=== PATIENT | male | born 1965 | race Caucasian/White ===

== ENCOUNTER 2017-03-07 17:29 | Emergency (ER) | payer MEDICAID ==
[~2017-03-07] VITALS: Ht 190.5 cm; Wt 100.5 kg
[2017-03-07 17:31] VITALS: Ht 190.5 cm; Wt 100.5 kg
--- OUTSIDE RECORDS SUMMARY | 2017-03-07 17:34 | XMS REPORT | Continuity of Care Document ---
Author Author [facility] Address [address] [place] [address] Care Team Providers Care Chief Of Surgery Name Role Phone DOCTOR, OUT OF TOWN Unavailable Unavailable Insurance Providers Payer Name Policy Number Subscriber Name Relationship Self-Pay Self-Pay CRAIG GILLESPIE Self Advance Directives Directive Response Recorded Date/Time Advance Directive Information: AD BROCHURE GIVEN TO PT 08/28/16 5:54pm Chief Complaint and Reason for Visit Reason for Visit KIDNEYSTONE Problems Active Medical Problems Problem Onset Date Recorded Date Status Renal calculus, right Unknown 08/28/16 Active Hydronephrosis, right Unknown 08/28/16 Active Medications Current Home Medications Medication Dose Units Route Directions Days/Qty Instructions Start Date MEDICATION RECONCILIATION (Medication Reconciliation) 1 EACH EA 1 EACH BY MOUTH ONE TIME ONLY Acetaminophen 500 MG (Tylenol Extra Strength 500 MG) 500 MG TAB 500 MG BY MOUTH EVERY 4 HOURS NEEDED PRN PAIN Hydrocodone 5MG/Acet 325MG ([place] 5-325 Tablet) 1 EACH TABLET 1 TAB BY MOUTH EVERY 4 HOURS NEEDED PRN PAIN 20 1 tab PO q 4-6 hours PRN pain Multiple Vitamins W/Minerals (Centrum) 1 EA TAB 1 TAB BY MOUTH DAILY Ondansetron (Zofran Odt) 4 MG TAB.RAPDIS 4 MG BY MOUTH EVERY 6 HOURS NEEDED PRN NAUSEA AND VOMITING 12 08/28/16 Tamsulosin HCl (Flomax) 0.4 MG CAP.ER.24H 1 TAB PO DAILY 7 1 tab PO daily 08/28/16 Social History No social history. Hospital Discharge Instructions No hospital discharge instructions. Plan of Care Discharge Date 08/28/16 Disposition HOME/SELF CARE Instructions/Education Provided DI for Kidney Stones Prescriptions See Medications Section Referrals OUT OF TOWN DOCTOR - Additional Instructions/Education Continue to drink plenty of fluids. Take pain medicine as needed. Take nausea medication as needed. Take flomax daily. Follow up with the urologist appointment that you have scheduled for Wednesday. Return to the ER if you have worsening pain or other symptoms that you cannot control at home. No driving until cleared by urology. Care Plan and Goals Problem: Flank Pain Goal: Relief of flank pain. Plan: Refer to patient instructions provided. Functional Status No functional status results. Allergies, Adverse Reactions, Alerts Allergen Type Severity Reaction Status Last Updated PENICILLINS Allergy Unknown Active 08/28/16 CODEINE Allergy Unknown Active 08/28/16 AMPICILLIN Allergy Unknown Active 08/28/16 Immunizations Name Date Given Type *Flu Shot: None Historical *Tetanus Shot: Unknown Historical Vital Signs Vital Reading Collection Date/Time Result Blood Pressure 08/28/16 8:15pm 132/88 Patient Temperature 08/28/16 5:08pm 97.0 Temperature Source 08/28/16 5:08pm Temporal Respiratory Rate 08/28/16 8:15pm 20 Pulse Rate 08/28/16 8:15pm 78 Bedside Pulse Oximetry 08/28/16 8:15pm 98 Height 08/28/16 5:08pm 6 ft 3 in Weight 08/28/16 5:08pm 212 lb Body Mass Index 08/28/16 5:08pm 26.5 Results [place] [id number] ED PHYSICIAN DOCUMENTATION Patient Name: CRAIG GILLESPIE : 65 Unit #: [id number] Patient's Service Date: 08/28/16 ED Physician: Oriana Johnson MD Primary Physician: OUT OF TOWN DOCTOR History of Present Illness General Chief Complaint Flank Pain Stated Complaint KIDNEYSTONE Time Seen by Provider 1730 Source patient Exam Limitations no limitations History of Present Illness Initial Comments Pt began having right flank pain this AM. He has not been able to urinate. He has hx Location abdomen (right flank) Context present at rest Quality sharp, cramping Severity moderate Duration since waking today Timing continuous Allergies Coded Allergies: AMPICILLIN (08/28/16) CODEINE (08/28/16) PENICILLINS (08/28/16) Home Medications Reported Medications MEDICATION RECONCILIATION (Medication Reconciliation) 1 EACH BY MOUTH ONE Acetaminophen 500 MG (Tylenol Extra Strength 500 MG) 500 MG BY MOUTH Q4H PRN PRN PAIN Multiple Vitamins W/Minerals (Centrum) 1 TAB BY MOUTH DAILY Review of Systems Review of Systems Was ROS Completed? Yes Constitutional Denies fever, Denies chills ENT Denies ear pain, Denies nose congestion, Denies throat pain Respiratory Denies cough, Denies short of breath, Denies wheezing Cardiovascular Denies chest pain, Denies syncope Gastrointestinal Reports abdominal pain (right flank), Reports nausea, Denies diarrhea, Denies vomiting Genitourinary Reports decreased urination Skin Denies rash Past Medical History Past Medical History Medical History renal stones Surgical History stone removal procedure Social History Smoker Never smoker Other Tobacco Use Chewing Tobacco Physical Exam Physical Exam Exam Limitations no limitations Nursing Assessment Reviewed Yes Initial Vital Signs Vital Signs Result Date Time Pulse Ox 98 08/28 1708 B/P 160/87 08/28 170 Temp 97.0 08/28 170 Pulse 94 08/28 1708 Resp 16 08/28 1708 Constitutional well developed, well nourished, no apparent distress Eyes bilateral eyes PERRL, bilateral eyes EOMI Ear, Nose, Throat hearing grossly normal Neck normal inspection, full range of motion Respiratory no respiratory distress, normal breath sounds, no accessory muscle use Cardiovascular regular rate/rhythm Gastrointestinal soft, non tender, flank tenderness (R CVA TTP) Musculoskeletal gait WNL Skin normal color, warm/dry Neurological no motor deficit, no sensory deficit Psychiatric alert, oriented, normal mood/affect Results Results Labs Laboratory Tests 08/28 08/28 1725 1900 Chemistry Sodium (135 - 150 mmol/L) 142 Potassium (3.4 - 5.2 mmol/L) 3.4 Chloride (100 - 112 mmol/L) 103 Carbon Dioxide (21 - 33 meq/L) 30 Anion Gap (8 - 16 mmol/L) 9 BUN (5 - 21 mg/dl) 8 Creatinine (0.60 - 1.30 mg/dl) 1.32 H GFR Calculation (> 60 mL/Min) > 60 Glucose (70 - 99 mg/dl) 94 Calcium (8.6 - 10.5 mg/dl) 9.2 Total Bilirubin (0.0 - 1.2 mg/dl) 1.1 AST (6 - 37 U/L) 41 H ALT (12 - 78 U/L) 97 H Alkaline Phosphatase (46 - 116 U/L) 73 Total Protein (6.4 - 8.2 g/dl) 8.1 Albumin (3.3 - 4.5 g/dl) 4.3 Albumin/Globulin Ratio (0.7 - 2.0) 1.1 Hematology WBC (4.5 - 11.0 10^3/uL) 11.1 H RBC (4.70 - 6.00 10^6/uL) 5.74 Hgb (13.5 - 17.5 g/dl) 16.3 Hct (41 - 53 %) 48.3 MCV (80 - 100 fL) 84.2 MCH (25.0 - 34.0 pg) 28.3 MCHC (31.0 - 36.0 g/dL) 33.6 RDW (11.0 - 15.0 %) 13.8 Plt Count (130 - 400 10^3/uL) 269 MPV (7.0 - 11.0 fL) 8.6 Neutrophils (Manual) (50 - 65 %) 79 H Neutrophils # (1.0 - 8.0 #) 9.1 H Band Neutrophils (0 - 10 %) 3 Lymphocytes (Manual) (15 - 45 %) 14 L Lymphocytes # (1.0 - 3.0 #) 1.6 Monocytes (Manual) (0 - 10 %) 4 Monocytes # (0.0 - 1.0 #) 0.4 Eosinophils # (0.0 - 0.4 #) 0.0 Basophils # (0.0 - 0.2 #) 0.0 Urines Urine Color (Yellow) Yellow Urine Appearance (Clear) Clear Urine pH (4.5 - 7.5) 6.0 Ur Specific [place] (1.010 - .025) 1.025 Urine Protein (Negative) Negative Urine Ketones (Negative) Negative Urine Blood (Negative) 2+ H Urine Nitrate (Negative) Negative Urine Bilirubin (Negative) Negative Urine Urobilinogen (<=1.0) 0.2 Ur Leukocyte Esterase (Negative) Negative Urine RBC (0 - 5) 2 - 5 Ur Epithelial Cells (0 - 2) O - 2 Urine Mucus (None Seen) 1+ H Urine Glucose (Negative) Negative CT Reviewed by ED provider Yes Progress Note Medications Medications Medications Given in ED Sig/Arslan Start time Last Medication Dose Route Stop Time Status Admin/ Admin Dose Ketorolac 30 MG X1ED STA 08/28 1724 DC 08/28 Tromethamine IV 08/28 1725 1741 (Toradol) 30 MG Ondansetron HCl 4 MG ONE ONE 08/28 1724 DC 08/28 (Zofran) IV 08/28 1725 1741 4 MG Sodium Chloride 1,000 ML .Q1H 08/28 1902 DC 08/28 (0.9% Sodium IV 08/28 2001 190 Chloride) 1,000 MLS Sodium Chloride 1,000 ML .Q1H 08/28 1725 DC 08/28 (0.9% Sodium IV 08/28 182 1740 Chloride) 1,000 MLS Tamsulosin HCl 0.4 MG ONE ONE 08/28 1848 DC 08/28 (Flomax) BY MOUTH 08/28 184 1854 0.4 MG Departure Departure Clinical Impression Primary Impression: Renal calculus, right Secondary Impressions: Hydronephrosis, right Time of Disposition 1955 Disposition HOME/SELF CARE Smoking Education Indicated Yes Patient Instructions DI for Kidney Stones Referrals OUT OF TOWN DOCTOR (PCP/Family) Additional Instructions Continue to drink plenty of fluids. Take pain medicine as needed. Take nausea medication as needed. Take flomax daily. Follow up with the urologist appointment that you have scheduled for Wednesday. Return to the ER if you have worsening pain or other symptoms that you cannot control at home. No driving until cleared by urology. Prescriptions Current Visit Scripts Hydrocodone 5MG/Acet 325MG ([place] 5-325 Tablet) 1 TAB BY MOUTH Q4H PRN PRN PAIN #20 TAB 1 tab PO q 4-6 hours PRN pain Ondansetron (Zofran Odt) 4 MG BY MOUTH Q6H PRN PRN NAUSEA AND VOMITING #12 TAB.SL Ref 1 Tamsulosin HCl (Flomax) 1 TAB PO DAILY #7 TAB 1 tab PO daily Frank Ann PA-C (E Electronically Signed 08/28/162007 Guy Johnson MD Procedures No Known History of Procedures. Encounters Encounter Location Arrival/Admit Date Discharge/Depart Date Attending Provider Departed [facility] 08/28/16 4:58pm 08/28/16 8:15pm Oriana Johnson MD Encounter Diagnosis Calculus of right kidney Hydronephrosis of right kidney
[2017-03-07] MEDS ORDERED: NORMAL SALINE 1,000 ML IV ONE ×2 (17:46→19:15)
--- NOTE | 2017-03-07 17:46 | ERPDOC ---
Departure Disposition Decision Date: Mar 07, 2017 Disposition Decision Time: 21:00 Disposition: 01 DISCHARGED HOME, SELF-CARE Impression Impression Impression: Primary Impression: Enteritis Additional Impressions: Nausea & vomiting Vomiting type: unspecified Vomiting Intractability: non-intractable Qualified Codes: R11.2 - Nausea with vomiting, unspecified Volume depletion Condition: Improved Seen By: Mid-level only Referrals: URIEL MOORE APRN (Family) Patient Instructions: Acute Nausea and Vomiting (ED), Dehydration (ED), Enteritis (ED) Problems/Meds/Labs Reviewed?: Yes Medications reviewed and manag: Yes Additional Instructions: You may take ondansetron 4mg ODT for nausea/vomiting, dissolve 1 tab on your tongue every 4-6 hours as needed. Clear liquids for next 24 hours. Then advance diet to BRAT diet. Brat Diet Includes: Bananas, Rice, Applesauce, and Haslet. Follow treatment plan. If your symptoms are not improving in the next 3-5 days follow with your PCP, sooner is worsting symptoms. Follow up care ordered?: Yes Mental Status: Alert, Oriented Scripts Ondansetron (Ondansetron Odt) 4 Mg Tab.rapdis 4 MG PO Q4-6HPRN for NAUSEA &/OR VOMITING, #28 TAB Prov: KRZYSZTOF CROCKETT APRN 03/07/17 HPI - Abdominal Pain General Stated Complaint: NAUSEA Time Seen by Provider: 17:45 Source: patient HPI - Abdominal Pain Initial Comments 51-year-old male presents to ER with complaint of nausea and vomiting intermittently for past 2 weeks. Patient states that he has had vomiting accompanied with nausea daily over the past 2 weeks. Also notes that he has had an intermittent cough which is sometimes productive with white mucus. 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 States that he felt that he just had the flu and symptoms would go away. [facility] and [facility] and [facility]. Patient was given zofran by EMS. Patient states that he has had a few diarrhea stools in the last 24 hours. Patient denies fever, chills, CP, abdominal pain, dysuria or headache. Associated Symptoms: nausea/vomiting, DENIES: back pain, chest pain, diaphoresis, fatigue, fever/chills, headache, heartburn, rash, shortness of breath, swelling/mass in abdomen, syncope Allergies: Coded Allergies: codeine (Verified Allergy, Severe, THROAT SWELLING, 03/07/17) Penicillins (Verified Allergy, Intermediate, HIVES, 03/07/17) ampicillin (Verified Allergy, Unknown, HIVES, 03/07/17) Past History Past Medical History Pt denies signifigant PMH Surgical History General: appendix Family History Family PMH: FOUND: other (noncontributory) Social History Marital Status: Sexuality: female partner Current Occupational Status: employed Review of Systems Constitutional Constitutional: DENIES: chills, dizziness, fever, weakness Eyes General: DENIES: erythema, exudate Lids/Accessories: DENIES: erythema, swelling Vision: DENIES: blurring ENMT Ears: DENIES: pain Sinuses: DENIES: congestion, rhinorrhea Mouth/Throat: DENIES: sore throat Cardiovascular Cardiac: DENIES: chest pain, murmur Rhythm/Rate: DENIES: palpitations Pulmonary Respiratory: cough, see HPI, sputum (white), DENIES: dyspnea GI Upper Abdomen: nausea, vomiting, DENIES: pain Lower Abdomen: diarrhea, DENIES: blood in stool, pain General: DENIES: dysuria, pain Musculoskeletal General: DENIES: joint pain, pain, tenderness Integumentary Skin: DENIES: color change, itching, rash Neurological General: DENIES: ataxia, change in strength, numbness, paralysis/paresis, weakness Psychiatric Psychiatric: DENIES: anxiety, depression, nervousness Physical Exam General General Nourishment: well nourished, well developed, no acute distress, adult General Body Habitus: disheveled Vitals and Pain First Documented Vital Signs Date Time Temp Pulse Resp B/P Pulse Ox O2 Delivery O2 Flow Rate FiO2 03/07/17 17:31 98.1 76 18 105/62 95 Room Air Weight: Kilograms: Height (feet): Height (inches): Triage Pain Scale: Eyes (brief) Eyes Brief: found: EOMI, PERRL ENMT (brief) ENMT Brief: FOUND: TM clear, TM good light reflex, mucosa moist, NOT FOUND: nasal exudate, nasal swelling, pharnyx erythema Neck (brief) Neck: FOUND: trachea midline, NOT FOUND: adenopathy, spasm, tenderness, thyromegaly Respiratory (brief) Respiratory: FOUND: clear all kitchen, equal bilaterally, symmetrical Cardiovascular (brief) Cardiac: FOUND: regular rate, regular rhythm Abdomen (brief) Abdominal Brief: FOUND: bowel normo active x4, soft, NOT FOUND: distended, tender Musculoskeletal (brief) Musculoskeletal Brief: NOT FOUND: deformity, tenderness Integumentary (brief) Integumentary Brief: FOUND: dry, pink, warm Neurologic (brief) Neurological Brief: FOUND: CN w/o gross def to obs, motor-no gross deficits, sensory-no gross deficits Psychiatric (brief) Psychiatric Brief: FOUND: alert, normal affect, oriented Differential Diagnoses Considering: Bowel Obstruction, Dehydration, Food Poisoning, Gastroenteritis, Hypokalemia, Pneumonia, UTI, Viral Syndrome, Other (Ileus) Progress Results/Orders Orders Procedure Category Date Status Time Cbc W/Auto LAB 03/07/17 Complete Diff-Reflex Manual 17:46 Cmp - Comprehensive LAB 03/07/17 Complete Metabolic 17:46 Lipase LAB 03/07/17 Complete 17:46 Ua, Dip Wreflex LAB 03/07/17 Complete Microsc & Cutch Cleaner 17:46 Iv Lock (Ed Only) EDM 03/07/17 Transmitted 17:46 Normal Saline (Normal PHA 03/07/17 Complete Saline Iv) 17:46 Chest, Pa & Lateral RAD 03/07/17 Resulted Kub W/Upright RAD 03/07/17 Resulted Normal Saline (Normal PHA 03/07/17 Complete Saline Iv) 19:15 Ct Abd/Pelvis CT 03/07/17 Resulted W/Contrast Only Iohexol (Omnipaque) PHA 03/07/17 Complete 19:38 Normal Saline (Ns) PHA 03/07/17 Complete 19:38 Saline Flush (Iv PHA 03/07/17 Complete Flush) 19:38 Ondansetron Odt PHA 03/07/17 Complete (Prepack) (Zofran Odt 21:45 Lab Results Laboratory Tests Test 03/07/17 18:25 03/07/17 20:46 White Blood Count 15.1T/MM3 Red Blood Count 4.91M/MM3 Hemoglobin 14.2GM/DL Hematocrit 42.5% Mean Corpuscular Volume 86.6UM3 Mean Corpuscular Hemoglobin 28.9UUG Mean Corpuscular Hemoglobin Concent 33.4GM/DL RDW Standard Deviation 41.1FL Platelet Count 242T/MM3 Mean Platelet Volume 9.9UM3 Immature Granulocyte % (Auto) % Neutrophils (%) (Auto) % Lymphocytes (%) (Auto) % Monocytes (%) (Auto) % Eosinophils (%) (Auto) % Basophils (%) (Auto) % Absolute Immature Granulocyte (auto T/MM3 Absolute Neutrophils (auto) T/MM3 Absolute Lymphocytes (auto) T/MM3 Absolute Monocytes (auto) T/MM3 Absolute Eosinophils (auto) T/MM3 Absolute Basophils (auto) T/MM3 Neutrophils % (Manual) 90.0% Lymphocytes % (Manual) 3.0% Monocytes % (Manual) 7.0% Absolute Neutrophils (Manual) 13.6T/MM3 Lymphocytes # (Manual) 0.5T/MM3 Monocytes # (Manual) 1.1T/MM3 Red Cell Morphology Comment Normal Turbidity < 20 Sodium Level 150MEQ/L Potassium Level 3.2MEQ/L Chloride Level 110MEQ/L Carbon Dioxide Level 23MEQ/L Anion Gap 17MEQ/L Blood Urea Nitrogen 10.0MG/DL Creatinine 1.0MG/DL Glomerular Filtration Rate Calc 79 BUN/Creatinine Ratio 10RATIO Glucose Level 100MG/DL Calculated Osmolality 287MOSM/KG Calcium Level 8.7MG/DL Total Bilirubin 0.90MG/DL Icterus Index < 2 Aspartate Amino Transf (AST/SGOT) 35U/L Alanine Aminotransferase (ALT/SGPT) 64U/L Alkaline Phosphatase 74U/L Total Protein 6.8G/DL Albumin 3.8G/DL Globulin 3.0G/DL Albumin/Globulin Ratio 1.3RATIO Lipase 46U/L Chemistry Specimen Hemolysis < 15 Urine Collection Type Voided-not cc-midstr Urine Color Yellow Urine Turbidity Clear Urine pH 7.0 Urine Specific [place] 1.010 Urine Protein Negative Urine Glucose (UA) Negative Urine Ketones Negative Urine Blood Negative Urine Nitrite Negative Urine Bilirubin Negative Urine Urobilinogen 0.2EU/DL Urine Leukocyte Esterase Negative Urinalysis Comment Microscopic not ind. Medications Current ED Medications Sodium Chloride 1,000 ml @ 0 mls/hr Q0M ONCE IV ; Start 03/07/17 at 17:46; Stop 03/07/17 at 17:49; Status DC Sodium Chloride (Normal Saline IV) 1,000 ml @ 0 mls/hr Q0M ONCE IV Last administered on 03/07/17t 19:35; Start 03/07/17 at 19:15; Stop 03/07/17 at 19:16; Status DC Iohexol 1 bottle 1 bottle STK-MED ONCE .ROUTE ; Start 03/07/17 at 19:38; Stop 03/07/17 at 19:39; Status DC Sodium Chloride (NS) 100 ml @ As Directed STK-MED ONCE .ROUTE ; Start 03/07/17 at 19:38; Stop 03/07/17 at 19:39; Status DC Sodium Chloride (Iv Flush) 10 ml STK-MED ONCE .ROUTE ; Start 03/07/17 at 19:38; Stop 03/07/17 at 19:39; Status DC Ondansetron HCl (ZOFRAN ODT (PrePack)) 1 pack O ONCE SENT HOME Last administered on 03/07/17 21:40; Start 03/07/17 at 21:45; Stop 03/07/17 at 21:46; Status DC Progress Progress Patient had no change in BP moving from lying to sitting/standing, however did have heart rate increase. CBC 15.1, no bands K 3.2 NA 150 Gap 17 other labs unremarkable Patient reports feeling much better after fluids. I discussed labs, x-rays and CT findings and answered with patient. Patient requesting to go home at this time. I discussed treatment plan, close follow up with PCP and return precautions which patient verbalized understanding. Xray Xray #1: Xray: CXR PA/Lat (no acute cardiopulmonary findings (Dr. Law)) Xray #2: Xray: KUB Upright (air fluid levels concern for SBO (Dr. Law)) CT CT : CT: Abd/Pelvis IV contrast (fluid-filled nondilated small and large bowel without bowel wall thickening. Consitent with ileus or enteritis.) Interpretation: Faxed Report KRZYSZTOF CROCKETT SHEEP CLIPPER Mar 07, 2017 17:45
[2017-03-07] MEDS ORDERED: NO ROUTINE MEDS (17:50)
[2017-03-07] MEDS ORDERED: MULT-933 PO (17:51)
--- NOTE | 2017-03-07 18:22 | NUR ---
REPORT GIVEN TO RAQUEL MONTANA. WILL RESUME CARE
--- NOTE | 2017-03-07 18:25 | NUR ---
STATUS INTRODUCED SELF TO PT. PT RESTING ON CART. AOX3, CALM, COOPERATIVE, PLEASANT TO TALK TO. PT DENIES PAIN. REPORTS NAUSEA AND DIZZINESS - MORE SO WITH MOVEMENT. PT APPEARS SOMEWHAT CLAMMY AND PALE.
--- NOTE | 2017-03-07 18:30 | NUR ---
IMAGING PT TO IMAGING VIA CART
[2017-03-07 18:33] LABS: HCT - HEMATOCRIT 42.5 % (41-53); HGB - HEMOGLOBIN 14.2 GM/DL (13.5-17.5); MEAN CORPUSCULAR HGB 28.9 UUG (26-34); MEAN CORPUSCULAR HGB CONC(MCHC 33.4 GM/DL (31-37); MEAN CORPUSCULAR VOLUME 86.6 UM3 (80-100); MEAN PLATELET VOLUME 9.9 UM3 (9.4-12.4); RED BLOOD COUNT 4.91 M/MM3 (4.50-5.90); WBC - WHITE BLOOD COUNT 15.1 T/MM3 (4.5-11.0)
[2017-03-07 18:41] LABS: ALBUMIN 3.8 G/DL (3.5-5.0); ALBUMIN/GLOBULIN RATIO 1.3 RATIO (1.1-2.2); ALKALINE PHOSPHATASE 74 U/L (38-126); ALT (SGPT) 64 U/L (21-72); ANION GAP 17 MEQ/L (5-15); AST (SGOT) 35 U/L (17-59); BUN/CREATININE RATIO 10 RATIO (6-26); CALCIUM 8.7 MG/DL (8.4-10.2); CHLORIDE 110 MEQ/L (98-107); CO2 - CARBON DIOXIDE 23 MEQ/L (22-30); GLOMERULAR FILTRATION RATE 79; GLUCOSE 100 MG/DL (75-110); LIPASE 46 U/L (23-300); POTASSIUM 3.2 MEQ/L (3.6-5); SODIUM 150 MEQ/L (134-144); TOTAL PROTEIN 6.8 G/DL (6.3-8.2)
--- NOTE | 2017-03-07 18:45 | NUR ---
IMAGING PT RETURN FROM IMAGING AT THIS TIME
[2017-03-07 19:02] LABS: LYMPHOCYTES # (MANUAL) 0.5 T/MM3 (1-4.8); MONOCYTES # (MANUAL) 1.1 T/MM3 (0-0.8); NEUTROPHILS #(MANUAL)-ABSOLUTE 13.6 T/MM3 (1.8-7.7)
[2017-03-07] MEDS ORDERED: NORMAL SALINE 100 ML ONE (19:38)
[2017-03-07] MEDS ORDERED: IOHEXOL 300 MG/ML 100ml INJECTION ONE (19:38)
[2017-03-07] MEDS ORDERED: SALINE FLUSH 10ml SYRINGE ONE (19:38)
--- NOTE | 2017-03-07 19:45 | NUR ---
IMAGING PT TO CT AT THIS TIME
--- NOTE | 2017-03-07 20:00 | NUR ---
IMAGING PT RETURN TO ROOM FROM IMAGING AT THIS TIME
[2017-03-07 20:54] LABS: BLOOD, URINE NEGATIVE (NEGATIVE); COLOR,URINE YELLOW (YELLOW); LEUKOCYTE ESTERASE ,URINE NEGATIVE (NEGATIVE); NITRITE,URINE NEGATIVE (NEGATIVE); UROBILINOGEN,URINE 0.2 EU/DL (NORMAL)
--- NOTE | 2017-03-07 21:18 | DI ---
Indication: ITS.REASON: Abdominal pain, evaluate for SBO PROCEDURE: CT ABD/PELVIS W/CONTRAST ONLY: Encounter: Initial Comparison: None Technique: Axial CT images were performed through the abdomen and pelvis after the administration of intravenous contrast. Coronal and sagittal two-dimensional reformats. Automated Exposure Control and Iterative Reconstruction dose reducing techniques were utilized. Contrast: Omnipaque 300 100 mL Findings: The lung bases are clear. The liver is fatty infiltrated without focal mass or bile duct dilatation. The spleen shows granulomas but no acute findings. The pancreas, adrenal glands are within normal limits. Right renal stones. Bilateral probable renal cysts. No abdominal or pelvic adenopathy. Fluid-filled small and large bowel loops. Bladder is normal. No focally abnormally dilated small bowel to suggest an acute small bowel obstruction. Prior appendectomy. Bone windows show no acute findings. Impression: 1. Gastroenteritis without evidence of small bowel obstruction. 2. Cholelithiasis and nephrolithiasis. 3. Hepatic steatosis. There is a preliminary report by virtual radiologic. .
[2017-03-07] MEDS ORDERED: ONDA4TAB10 PO (21:21)
[2017-03-07 21:42] VITALS: BP 116/76; PULSE 84; RESP 16; TEMP 98.1; O2SAT 94
--- NOTE | 2017-03-07 21:42 | NUR ---
DEPART PT GIVEN DI FOR DEHYDRATION, ACUTE N/V, ENTERITIS, ZOFRAN, F/U. PREPAK/RX PROVIDED FOR ZOFRAN. PT VERBALIZES UNDERSTANDING OF DI. QUESTIONS ASKED/ANSWERED - DENIES FURTHER QUESTIONS/NEEDS AT THIS TIME. IV SITE REMOVED. PERSONAL BELONGINGS GATHERED. PT ESCORTED/AMBULATED TO ED EXIT - GAIT STABLE, NO SIGN OF DISTRESS AT THIS TIME. PT TAKEN TO PUBLIC PHONE TO CALL FOR RIDE.
[2017-03-07] MEDS ORDERED: ONDANSETRON ODT 4mg #3 (PrePack) SENT HOME ONE (21:45)
--- NOTE | 2017-03-07 22:11 | DI ---
INDICATION: ITS.REASON: cough for 2 weeks PROCEDURE: CHEST 2-VIEWS UPRIGHT (PA \T\ LAT) Encounter: Initial COMPARISON: December 18, 2016 FINDINGS: The lungs are clear without evidence of focal abnormal airspace opacity. There is no pleural effusion or pneumothorax. The heart size, mediastinal contours and pulmonary vascularity are within normal limits. There is no significant skeletal abnormality. IMPRESSION: No acute cardiopulmonary disease. .
--- NOTE | 2017-03-07 22:12 | DI ---
Indication: ITS.REASON: nausea and vomiting for 2 weeks PROCEDURE: KUB W/UPRIGHT: Encounter: Initial Comparison: CT abdomen and pelvis from the same date Findings: The visualized lung bases are clear. There is no free air on the upright view. Small bowel air-fluid levels present as noted on the CT. Scattered colonic gas. No abnormally dilated small bowel appreciated. The bony structures are grossly unremarkable. Impression: Gastroenteritis or ileus. .
== END 2017-03-07 21:42 | disposition home or self-care (01) ==
LOC: ED 17:29
DX: K52.9 Noninfective gastroenteritis and colitis, unspecified (principal); E86.9 Volume depletion, unspecified
CPT/HCPCS: 36415; 71020; 74020; 74177; 80053; 81003; 83690; 85025; 96360; 96361; 99284; J7030; J7050; Q9967

== ENCOUNTER 2017-04-24 17:55 | Emergency (ER) | payer MEDICAID ==
[~2017-04-24] VITALS: Ht 190.5 cm; Wt 105.1 kg
[~2017-04-24 17:55] MED LIST: MULT-933 PO; NO ROUTINE MEDS; ONDA4TAB10 PO
--- OUTSIDE RECORDS SUMMARY | 2017-04-24 17:58 | XMS REPORT | Continuity of Care Document ---
Author Author [facility] Organization [facility] Address Unknown Phone Unavailable Support Name Relationship Address Phone MARCH, STEFANY Johnston DO Caregiver [address] [place] [address] Unavailable URIEL MOORE APRN Caregiver [address] [place] [address] Unavailable CARLITOS GRAJEDA Next Of Kin [address] [place], [place] [id number] Insurance Providers Guarantor Craig Grajeda Address [address] [place] [address] Email DENIED 17 Payer [facility] Community Plan Policy Number [id number] Subscriber's Name TarasCraig King Relationship 18 Self Effective Date 17 Expiration Date 17 Advance Directives Directive Response Recorded Date/Time Advanced Directives Type None 03/07/17 5:31pm Chief Complaint and Reason for Visit Chief Complaint Nausea,Vomiting,Diarrhea Reason for Visit Nausea & vomiting Enteritis Dehydration Problems Past Problems Medical Problem Onset Date Dehydration Unknown Enteritis Unknown Nausea & vomiting Unknown Medications Current Home Medications Medication Dose Units Route Directions Days Qty Instructions Start Date Multivitamin (Multi-Day Vitamins) 1 Each Tablet 1 Tab Oral Daily 03/07/17 No Routine Meds 03/07/17 Ondansetron (Ondansetron Odt) 4 Mg Tab.rapdis 4 Mg Oral Every 4-6 Hours Prn for Nausea &/Or Vomiting 28 Tablet 03/07/17 Social History Social History Problem Response Recorded Date/Time Onset Date Status Hx Alcohol Use No 03/07/2017 6:24pm Not Applicable Not Applicable Query Response Start Date Stop Date Smoking Status Never smoker Hospital Discharge Instructions No hospital discharge instructions. Plan of Care Discharge Date 03/07/17 9:42pm Disposition 01 DISCHARGED HOME, SELF-CARE Condition at Discharge Improved Instructions/Education Provided Dehydration (ED) Acute Nausea and Vomiting (ED) Enteritis (ED) Prescriptions See Medication Section Referrals URIEL MOORE APRN Address: [address] [place] [address] Additional Instructions/Education You may take ondansetron 4mg ODT for nausea/ vomiting, dissolve 1 tab on your tongue every 4-6 hours as needed. Clear liquids for next 24 hours. Then advance diet to BRAT diet. Brat Diet Includes: Bananas, Rice, Applesauce, and [place]. Follow treatment plan. If your symptoms are not improving in the next 3-5 days follow with your PCP, sooner is worsting symptoms. Care Plan and Goals Physician Care Plan Problem: Enteritis, nausea/vomiting, dehydration Goal: Follow up with primary care provider Instructions: Take medications and follow care plan as discussed/written Functional Status No functional status results. Allergies, Adverse Reactions, Alerts Allergen Type Severity Reaction Status Last Updated Penicillin Allergy Intermediate HIVES Active 03/07/17 Codeine Allergy Severe THROAT SWELLING Active 03/07/17 Ampicillin Allergy Unknown HIVES Active 03/07/17 Immunizations Query Response on File Recorded Date/Time Influenza Vaccine Hx NO 03/07/17 6:24pm Vital Signs Acute Vital Signs Vital Response Date/Time Temperature (Fahrenheit) 98.1 deg F (96.8 - 99.1) 03/07/2017 9:42pm Temperature (Calculated Celsius) 36.53600 degrees C (36.0 - 37.3) 03/07/2017 9:42pm Pulse Rate (adult) 84 bpm (60 - 100) 03/07/2017 9:42pm Respiratory Rate 16 breaths/min (10 - 20) 03/07/2017 9:42pm O2 Sat by Pulse Oximetry 94 % (90 - 100) 03/07/2017 9:42pm Blood Pressure 116/76 mm Hg 03/07/2017 9:42pm Height (Feet) 6 feet 03/07/2017 5:31pm Height (Inches) 3.00 inches 03/07/2017 5:31pm Weight (Kilograms) 100.500 kg 03/07/2017 5:31pm Body Mass Index (BMI) 27.0 03/07/2017 5:31pm Results Laboratory Results Test Name Result Units Flags Reference Collection Date/Time Result Date/ Time Comments White Blood Count 15.1 T/MM3 H 4.5-11.0 03/07/2017 6:25pm 03/07/2017 6: 51pm Red Blood Count 4.91 M/MM3 4.50-5.90 03/07/2017 6:25pm 03/07/2017 6: 51pm Hemoglobin 14.2 GM/DL 13.5-17.5 03/07/2017 6:25pm 03/07/2017 6:51pm Hematocrit 42.5 % 41-53 03/07/2017 6:pm 03/07/2017 6:51pm Mean Corpuscular Volume 86.6 UM3 80-100 03/07/2017 6:25pm 03/07/2017 6: 51pm Mean Corpuscular Hemoglobin 28.9 UUG 26-34 03/07/2017 6:pm 2016 6:51pm Mean Corpuscular Hemoglobin Concent 33.4 GM/DL 31-37 03/07/2017 6:pm 03/07/2017 6:51pm RDW Standard Deviation 41.1 FL 36.9-50.2 03/07/2017 6:25pm 03/07/2017 6 :51pm Platelet Count 242 T/MM3 130-400 03/07/2017 6:pm 03/07/2017 6:51pm Mean Platelet Volume 9.9 UM3 9.4-12.4 03/07/2017 6:25pm 03/07/2017 6: 51pm Neutrophils % (Manual) 90.0 % H 33-66 03/07/2017 6:pm 03/07/2017 7: 03pm Lymphocytes % (Manual) 3.0 % L 23-45 03/07/2017 6:25pm 03/07/2017 7: 03pm Monocytes % (Manual) 7.0 % 0-9.0 03/07/2017 6:pm 03/07/2017 7:03pm Absolute Neutrophils (Manual) 13.6 T/MM3 H 1.8-7.7 03/07/2017 6:25pm 07/2017 7:03pm Lymphocytes # (Manual) 0.5 T/MM3 L 1-4.8 03/07/2017 6:25pm 03/07/2017 7: 03pm Monocytes # (Manual) 1.1 T/MM3 H 0-0.8 03/07/2017 6:25pm 03/07/2017 7: 03pm Red Cell Morphology Comment NORMAL 03/07/2017 6:25pm 03/07/2017 7: 03pm Icterus Index < 2 0-7 03/07/2017 6:03/07/2017 6:41pm Chemistry Specimen Hemolysis < 15 0-25 03/07/2017 6:pm 03/07/2017 6 :41pm 0-25: Specimen Exhibited No Hemolysis. Turbidity < 20 0-20 03/07/2017 6:pm 03/07/2017 6:41pm Sodium Level 150 MEQ/L H 134-144 03/07/2017 6:25pm 03/07/2017 6:41pm Potassium Level 3.2 MEQ/L L 3.6-5 03/07/2017 6:25pm 03/07/2017 6:41pm Chloride Level 110 MEQ/L H 98-107 03/07/2017 6:pm 03/07/2017 6:41pm Carbon Dioxide Level 23 MEQ/L 22-30 03/07/2017 6:03/07/2017 6: 41pm Anion Gap 17 MEQ/L H 5-15 03/07/2017 6:03/07/2017 6:41pm Blood Urea Nitrogen 10.0 MG/DL 9-20 03/07/2017 6:03/07/2017 6: 41pm Creatinine 1.0 MG/DL 0.8-1.5 03/07/2017 6:03/07/2017 6:41pm BUN/Creatinine Ratio 10 RATIO 6-26 03/07/2017 6:03/07/2017 6:41pm Glomerular Filtration Rate Calc 79 03/07/2017 6:03/07/2017 6: 41pm Glucose Level 100 MG/DL 75-110 03/07/2017 6:03/07/2017 6:41pm Calculated Osmolality 287 MOSM/KG H 261-280 03/07/2017 6:2016 6:41pm Calcium Level 8.7 MG/DL 8.4-10.2 03/07/2017 6:03/07/2017 6:41pm Total Bilirubin 0.90 MG/DL 0.20-1.30 03/07/2017 6:03/07/2017 6: 41pm Alkaline Phosphatase 74 U/L 38-126 03/07/2017 6:03/07/2017 6:41pm Total Protein 6.8 G/DL 6.3-8.2 03/07/2017 6:25pm 03/07/2017 6:41pm Albumin 3.8 G/DL 3.5-5.0 03/07/2017 6:25pm 03/07/2017 6:41pm Globulin 3.0 G/DL 2.4-3.6 03/07/2017 6:pm 03/07/2017 6:41pm Albumin/Globulin Ratio 1.3 RATIO 1.1-2.2 03/07/2017 6:25pm 03/07/2017 6 :41pm Aspartate Amino Transf (AST/SGOT) 35 U/L 17-59 03/07/2017 6:25pm 2016 6:41pm Alanine Aminotransferase (ALT/SGPT) 64 U/L 21-72 03/07/2017 6:25pm 07/2017 6:41pm Lipase 46 U/L 23-300 03/07/2017 6:pm 03/07/2017 6:41pm Urine Collection Type VOIDED-NOT CC-MIDSTR 03/07/2017 8:46pm 2016 8:54pm Urine Color YELLOW YELLOW 03/07/2017 8:46pm 03/07/2017 8:54pm Urine Turbidity CLEAR CLEAR 03/07/2017 8:46pm 03/07/2017 8:54pm Urine Specific [place] 1.010 L 1.015-1.025 03/07/2017 8:46pm 2016 8:54pm Urine pH 7.0 5.0-8.0 03/07/2017 8:46pm 03/07/2017 8:54pm Urine Leukocyte Esterase NEGATIVE NEGATIVE 03/07/2017 8:46pm 2016 8:54pm Urine Nitrite NEGATIVE NEGATIVE 03/07/2017 8:46pm 03/07/2017 8:54pm Urine Protein NEGATIVE NEGATIVE 03/07/2017 8:46pm 03/07/2017 8:54pm Urine Glucose (UA) NEGATIVE NEGATIVE 03/07/2017 8:46pm 03/07/2017 8: 54pm Urine Ketones NEGATIVE NEGATIVE 03/07/2017 8:46pm 03/07/2017 8:54pm Urine Urobilinogen 0.2 EU/DL NORMAL 03/07/2017 8:46pm 03/07/2017 8: 54pm Urine Bilirubin NEGATIVE NEGATIVE 03/07/2017 8:46pm 03/07/2017 8: 54pm Urine Blood NEGATIVE NEGATIVE 03/07/2017 8:46pm 03/07/2017 8:54pm Urinalysis Comment MICROSCOPIC NOT IND. 03/07/2017 8:46pm 2016 8:54pm Name: CRAIG GRAJEDA Unit #: [id number] : 1965 Sex: M Admit Date: Loc / Svc: ED Discharge Date: DIAGNOSTIC IMAGING REPORT Report #: [id number] [facility] TREVON Jenkins Indication: ITS.REASON: nausea and vomiting for 2 weeks PROCEDURE: KUB W/UPRIGHT: Encounter: Initial Comparison: CT abdomen and pelvis from the same date Findings: The visualized lung bases are clear. There is no free air on the upright view. Small bowel air-fluid levels present as noted on the CT. Scattered colonic gas. No abnormally dilated small bowel appreciated. The bony structures are grossly unremarkable. Impression: Gastroenteritis or ileus. . Procedures Procedure Status Date Provider(s) Chest x-ray 2vw frontal&latl Completed 12/18/16 Encounters Encounter Location Arrival/Admit Date Discharge/Depart Date Attending Provider Departed Emergency Room [facility] 03/07/17 5:29pm 03/07/17 9: 42pm STEFANY FERMIN DO Registered Clinic [facility] 12/18/16 10:48am URIEL MOORE APRN Recent Diagnosis
[2017-04-24 18:00] VITALS: Ht 190.5 cm; Wt 105.1 kg
--- NOTE | 2017-04-24 18:15 | ERPDOC ---
Departure Disposition Decision Date: April 24, 2017 Disposition Decision Time: 19:06 Disposition: 01 DISCHARGED HOME, SELF-CARE Impression Impression Impression: Primary Impression: Facial numbness Severity: Moderate Condition: Stable Seen By: Mid-level only Referrals: URIEL MOORE APRN (Family) Patient Instructions: Paresthesia (ED) Problems/Meds/Labs Reviewed?: Yes Medications reviewed and manag: Yes Additional Instructions: Your labs and CT today are normal. Your exam today is normal as well. If this persists I do want you to follow up with your primary care provider for reevaluation. Otherwise return to ER with any worsening symptoms such as weakness in your extremities or severe pain or other issues/concerns. Follow up care ordered?: Yes Mental Status: Alert, Oriented HPI - General Medical General Chief Complaint: General Stated Complaint: NUMBNESS AROUND LIPS,NOT FEELING HIMSELF Time Seen by Provider: 17:59 Source: patient Exam Limitations: no limitations HPI - General Medical Initial Comments He woke up this morning with some numbness around his mouth. Has never had this before. Has not gotten worse throughout the day or spread at all. He also c/o "not feeling well". He does feel like this had increased throughout the day. He denies any nausea/vomiting, fever/chills, abdominal pain, headache, or other symptoms. Just feels tired overall and more tired than his typical usual tired. He has not taken anything today for his symptoms. Has had no trouble with speech or swallowing or ambulation. Denies any other PMH. Occurred At: home Onset: Gradual Duration: 4-6 hrs Severity: moderate Associated Symptoms: weakness, DENIES: chest pain, cough, diaphoresis, fever/ chills, headaches, loss of appetite, malaise, nausea/vomiting, rash, seizure, shortness of breath, syncope Hx of Similar Symptoms: No Allergies: Coded Allergies: codeine (Verified Allergy, Severe, THROAT SWELLING, 03/07/17) Penicillins (Verified Allergy, Intermediate, HIVES, 03/07/17) ampicillin (Verified Allergy, Unknown, HIVES, 03/07/17) iodine (Verified Allergy, Unknown, 04/24/17) Past History Past Medical History Pt denies signifigant PMH Surgical History General: appendix Family History Family PMH: FOUND: other Social History Smoking Status: Never smoker Substance Use Type: does not use Alcohol Intake: none Marital Status: Sexuality: female partner Current Occupational Status: employed Review of Systems Constitutional Constitutional: DENIES: chills, fever ENMT Ears: DENIES: drainage, pain Sinuses: DENIES: congestion, rhinorrhea Mouth/Throat: DENIES: painful swallowing, scratchy throat, sore throat Cardiovascular Cardiac: DENIES: chest pain, dyspnea on exertion Rhythm/Rate: DENIES: irregular beat, palpitations Vascular: DENIES: pedal edema, unilateral swelling Pulmonary Respiratory: DENIES: cough, dyspnea, sputum, tachypnea GI Upper Abdomen: DENIES: nausea, pain, vomiting Lower Abdomen: DENIES: constipation, diarrhea, pain Integumentary Skin: DENIES: rash Neurological General: numbness (circumoral), DENIES: headache, tingling Physical Exam General General Nourishment: well nourished, well developed, appears stated age, no acute distress, adult, thin General Body Habitus: well groomed Vitals and Pain First Documented Vital Signs Date Time Temp Pulse Resp B/P Pulse Ox O2 Delivery O2 Flow Rate FiO2 04/24/17 18:00 98.2 77 18 106/67 95 Room Air Weight: Kilograms: 105.100 Height (feet): 6 Height (inches): 3.00 Triage Pain Scale: RN VS reviewed by Provider: Yes Normal Exams: Neck: Full range of motion, without adenopathy, JVD, bruits or thyromegaly Chest/Resp: Clear all kitchen, with good airflow, and symmetry bilaterally CV: Regular rate and rhythm, without murmur or gallop, Pulses 2+ all extremities, capillary refill, <2 seconds all ext., no pedal edema noted Abdomen: Bowel sounds positive, soft, non-tender, non-distended, no hepatosplenomegaly, masses or bruits noted Lymphatic: No lymphadenopathy, or lymphedema noted Integumentary: No rashes, hives, or bruising noted Neurologic: Patient is alert, and oriented, cranial nerves, motor/sensory/ cerebellar, exams w/o gross deficits, to observation Psychiatric: Patient exhibits, appropriate attention, emotion and affect ENMT (brief) ENMT Brief: FOUND: TM clear, TM good light reflex, ear canals clear, mucosa moist, normal dentition, normal tonsils, NOT FOUND: lesions, nasal erythema, nasal exudate, nasal swelling, petechiae, pharnyx erythema, tonsillar deviation Neurologic GCS Adult : GCS Eye Opening: (4)Spontaneous GCS Verbal: (5)Oriented GCS Motor: (6)Obeys Commands Differential Diagnoses Considering: Acute [place], Hypo/Hyperglycemia, Hypo/Hyperkalemia, Hypo/ Hypernatremia, Medication Effect Progress Results/Orders Orders Procedure Category Date Status Time EKG EKG 04/24/17 Logged Troponin I W LAB 04/24/17 Complete Hemolysis Index Cbc W/Auto LAB 04/24/17 Complete Diff-Reflex Manual Cmp - Comprehensive LAB 04/24/[address] Head W/O Contrast CT 04/24/17 Taken Orthostatic Bp/Pulse EDM 04/24/17 Transmitted 18:33 Lab Results Laboratory Tests Test 04/24/17 18:30 White Blood Count 8.8T/MM3 Red Blood Count 4.66M/MM3 Hemoglobin 13.4GM/DL Hematocrit 39.9% Mean Corpuscular Volume 85.6UM3 Mean Corpuscular Hemoglobin 28.8UUG Mean Corpuscular Hemoglobin Concent 33.6GM/DL RDW Standard Deviation 41.7FL Platelet Count 203T/MM3 Mean Platelet Volume 10.4UM3 Immature Granulocyte % (Auto) 0.2% Neutrophils (%) (Auto) 65.8% Lymphocytes (%) (Auto) 24.8% Monocytes (%) (Auto) 7.3% Eosinophils (%) (Auto) 1.6% Basophils (%) (Auto) 0.3% Absolute Immature Granulocyte (auto 0.02T/MM3 Absolute Neutrophils (auto) 5.8T/MM3 Absolute Lymphocytes (auto) 2.2T/MM3 Absolute Monocytes (auto) 0.6T/MM3 Absolute Eosinophils (auto) 0.1T/MM3 Absolute Basophils (auto) 0.0T/MM3 Turbidity < 20 Sodium Level 144MEQ/L Potassium Level 4.2MEQ/L Chloride Level 106MEQ/L Carbon Dioxide Level 28MEQ/L Anion Gap 10MEQ/L Blood Urea Nitrogen 11.0MG/DL Creatinine 1.1MG/DL Glomerular Filtration Rate Calc 71 BUN/Creatinine Ratio 10RATIO Glucose Level 94MG/DL Calculated Osmolality 276MOSM/KG Calcium Level 9.7MG/DL Total Bilirubin 0.70MG/DL Icterus Index < 2 Aspartate Amino Transf (AST/SGOT) 50U/L Alanine Aminotransferase (ALT/SGPT) 101U/L Alkaline Phosphatase 66U/L Troponin I < 0.012ng/ml Total Protein 6.6G/DL Albumin 4.0G/DL Globulin 2.6G/DL Albumin/Globulin Ratio 1.5RATIO Chemistry Specimen Hemolysis 16 Progress Progress CBC, CMP, troponin, chest xray, EKG today are normal. Head CT does show enlarged ventricles but no bleed or mass. Will have him follow up with his PCP next week if symptoms persist. Return to ER with any worsening of symptoms overall. CT CT : Reason for Exam: facial numbness CT: Head no contrast Interpretation: Normal YVAN LONG APRN April 24, 2017 18:15
--- NOTE | 2017-04-24 18:29 | NUR ---
LAB IN ROOM WITH PT
[2017-04-24 18:36] LABS: BASOPHILS % (AUTO) 0.3 % (0-2); EOSINOPHILS # (AUTO) 0.1 T/MM3 (0-0.5); EOSINOPHILS % (AUTO) 1.6 % (0-4); HCT - HEMATOCRIT 39.9 % (41-53); HGB - HEMOGLOBIN 13.4 GM/DL (13.5-17.5); IMMATURE GRANULOCYTE # (AUTO) 0.02 T/MM3 (0.00-0.03); IMMATURE GRANULOCYTE % (AUTO) 0.2 % (0.0-0.5); LYMPHOCYTES # (AUTO) 2.2 T/MM3 (1-4.8); LYMPHOCYTES % (AUTO) 24.8 % (23-45); MEAN CORPUSCULAR HGB 28.8 UUG (26-34); MEAN CORPUSCULAR HGB CONC(MCHC 33.6 GM/DL (31-37); MEAN CORPUSCULAR VOLUME 85.6 UM3 (80-100); MEAN PLATELET VOLUME 10.4 UM3 (9.4-12.4); MONOCYTES # (AUTO) 0.6 T/MM3 (0-0.8); MONOCYTES % (AUTO) 7.3 % (0-9.0); NEUTROPHILS #(AUTO)-ABSOLUTE 5.8 T/MM3 (1.8-7.7); NEUTROPHILS % (AUTO) 65.8 % (33-66); RED BLOOD COUNT 4.66 M/MM3 (4.50-5.90); WBC - WHITE BLOOD COUNT 8.8 T/MM3 (4.5-11.0)
--- NOTE | 2017-04-24 18:40 | NUR ---
BACK FROM CT
[2017-04-24 18:45] LABS: ALBUMIN/GLOBULIN RATIO 1.5 RATIO (1.1-2.2); ALKALINE PHOSPHATASE 66 U/L (38-126); ALT (SGPT) 101 U/L (21-72); ANION GAP 10 MEQ/L (5-15); AST (SGOT) 50 U/L (17-59); BUN/CREATININE RATIO 10 RATIO (6-26); CALCIUM 9.7 MG/DL (8.4-10.2); CHLORIDE 106 MEQ/L (98-107); CO2 - CARBON DIOXIDE 28 MEQ/L (22-30); CREATININE 1.1 MG/DL (0.8-1.5); GLOMERULAR FILTRATION RATE 71; GLUCOSE 94 MG/DL (75-110); POTASSIUM 4.2 MEQ/L (3.6-5); SODIUM 144 MEQ/L (134-144); TOTAL PROTEIN 6.6 G/DL (6.3-8.2)
[2017-04-24 19:25] VITALS: BP 106/67; PULSE 77; RESP 18; TEMP 98.2; O2SAT 95
--- NOTE | 2017-04-25 09:00 | DI ---
Indication: ITS.REASON: facial numbness PROCEDURE: CT HEAD W/O CONTRAST: Encounter: Initial Comparison: None Technique: Axial CT images through the head were performed without contrast. Iterative Reconstruction dose reducing technique was utilized. FINDINGS: The ventricles are of normal size, shape, and contour for the patient's age. The brainstem, cerebellum, and cerebral hemispheres have a normal morphology and CT attenuation. There is no evidence of midline displacement. No hemorrhage, signs of acute territorial stroke, mass effect, mass lesions, or edema is evident. The visualized portions of the skull base, midface, and calvarium demonstrate no abnormality. The paranasal sinuses are well aerated and free of significant disease. The tympanic and mastoid cavities appear normal. IMPRESSION: No acute intracranial abnormality or hemorrhage. I do not believe that the ventricles are significantly dilated or particularly suggestive of normal pressure hydrocephalus as suggested on the preliminary report. MRI can be performed for further evaluation as clinically indicated. There is a preliminary report by [facility]. .
== END 2017-04-24 19:25 | disposition home or self-care (01) ==
LOC: ED 17:55
DX: R20.0 Anesthesia of skin (principal); R53.83 Other fatigue
CPT/HCPCS: 36415; 80053; 84484; 85025; 93005

== ENCOUNTER 2017-08-08 20:15 | Inpatient (IN) ==
[2017-08-08] MEDS ORDERED: KETOROLAC 30 MG/ML INJECTION IVP ONE (20:41)
--- NOTE | 2017-08-08 20:45 | Emergency Department Report ---
Male Urogenital HPI - General Chief complaint: Urogenital-Male Stated complaint: Back pain,blood in urine Time Seen by Provider: 08/08/17 20:28 Source: patient Mode of arrival: ambulatory Limitations: no limitations - History of Present Illness HPI Narrative: Pt has a known history of renal stones. Had a stent placed 07/29 in [place]. Pt is to have lithotrypsy with Dr Morse tomorrow. About 1800 today pt developed severe right flank pain he has taken norco without relief and is urinating whit blood. Pt notified Dr Morse who is ok with having the hospitalist admit pt for pain control MD Complaint: other Onset (ago): hour(s) Duration: constant Severity: moderate Severity scale (1-10): 5 Quality: sharp Relieving factors: none Exacerbating factors: none Reports: urinary retention, blood in urine - Related Data Home Medications Medication Instructions Recorded Confirmed Multivitamin [One-A-Day Essential] 1 each PO DAILY 08/06/17 08/08/17 Previous Rx's Medication Instructions Recorded Tamsulosin HCl [Flomax] 0.4 mg PO DAILY #30 cap.er.24h 08/01/17 Tramadol [Ultram] 1 - 2 tab PO QID PRN #30 tab 08/01/17 Hydrocodone/APAP 5/325 [[place] 1 tab PO QID PRN #30 tab 08/05/17 5/325] Metoclopramide HCl [Reglan] 10 mg PO QID #30 tab 08/06/17 Allergies Allergy/AdvReac Type Severity Reaction Status Date / Time codeine Allergy Severe THROAT Verified 08/08/17 20:23 SWELLING Penicillins Allergy Intermediate HIVES Verified 08/08/17 20:23 ampicillin Allergy Unknown HIVES Verified 08/08/17 20:23 iodine Allergy Unknown Verified 08/08/17 20:23 oxycodone AdvReac Mild Nausea and Verified 08/08/17 20:23 Vomiting Review of Systems All systems: reviewed and negative except as stated Genitourinary: Reports: hematuria Musculoskeletal: Reports: back pain PFSH Patient Stated Medical History Other Cardiology Yes: SMALLER VENTRICLES PER PT Hx Kidney Stones Yes: CHRONIC Other Yes: STENT RIGHT URETERAL Surgical History: Appendectomy. Multi-lithotripsy - Social History Smoking status: Never smoker Physical Exam - Limitations Limitations: no limitations - General General appearance: alert, in distress - Normal Exams: Eyes:: Pupils are PERRLA w/ EOMI Neck:: Full range of motion Chest/Respirations:: Clear all kitchen, with good airflow Cardiovascular:: Regular rate and rhythm, Pulses 2+ all extremities Abdomen:: Bowel sounds positive, soft, non-tender, non-distended Musculoskeletal:: No tenderness, or deformity noted, good range of motion Neurological:: Patient is alert, and oriented Psychiatric:: Patient exhibits, appropriate attention, emotion and affect - Back Exam Back exam: Present: CVA tenderness (R) - Skin Skin exam: Present: warm, dry, intact, normal color Course - Consultations Consultation #1: Dr Hollingsworth Time: 22:05 (admit obs) Vital Signs Temperature 98.6 F 08/08/17 20:20 Pulse Rate 89 08/08/17 20:20 Respiratory Rate 16 08/08/17 20:20 Blood Pressure 121/68 08/08/17 20:20 Pulse Oximetry 95 08/08/17 20:20 Temperature 98.6 F 08/08/17 20:20 Pulse Rate 89 08/08/17 20:20 Respiratory Rate 16 08/08/17 20:20 Blood Pressure 121/68 08/08/17 20:20 Pulse Oximetry 95 08/08/17 20:20 Urogenital-Male - MDM Narrative Medical decision making narrative: Pt presents with known history of renal stones and uncontrollable pain. Pt attempted to treat pain at home with norco and tramadol without success , notified Dr Morse who urged him to come to the ED. Pt to be admitted for pain control until lithotripsy tomorrow. - Differential Diagnosis Likely: urinary tract infection, urethritis, acute retention of urine - Medical Records Attestation: I reviewed the patient's medical records. - Lab Data Attestation: I reviewed the patient's lab results. Result diagrams: 08/08/17 20:54 08/08/17 20:54 Lab Results 08/08/17 08/08/17 08/08/17 Range/Units 20:54 20:54 20:54 WBC 9.7 (4.5-11.0) T/MM3 RBC 4.86 (4.50-5.90) M/MM3 Hgb 14.1 (13.5-17.5) GM/DL Hct 41.4 (41-53) % MCV 85.2 (80-100) UM3 MCH 29.0 (26-34) UUG MCHC 34.1 (31-37) GM/DL RDW Std Deviation 40.3 (36.9-50.2) FL Plt Count 268 (130-400) T/MM3 MPV 10.3 (9.4-12.4) UM3 Immature Gran % (Auto) 0.2 (0.0-0.5) % Neut % (Auto) 71.7 H (33-66) % Lymph % (Auto) 17.7 L (23-45) % [place] % (Auto) 7.7 (0-9.0) % Eos % (Auto) 2.4 (0-4) % Baso % (Auto) 0.3 (0-2) % Neut # 7.0 (1.8-7.7) T/MM3 Lymph # 1.7 (1-4.8) T/MM3 [place] # 0.8 (0-0.8) T/MM3 Eos # 0.2 (0-0.5) T/MM3 Baso # 0.0 (0-0.2) T/MM3 Abs Immat Gran (auto) 0.02 (0.00-0.03) T/MM3 Turbidity < 20 (0-20) Sodium 144 (134-144) MEQ/L Potassium 3.8 (3.6-5) MEQ/L Chloride 108 H (98-107) MEQ/L Carbon Dioxide 26 (22-30) MEQ/L Anion Gap 10 (5-15) MEQ/L BUN 14.0 (9-20) MG/DL Creatinine 1.4 (0.8-1.5) MG/DL GFR Calculation 53 BUN/Creatinine Ratio 10 (6-26) RATIO Glucose 108 (75-110) MG/DL Calculated Osmolality 279 (261-280) MOSM/KG Calcium 9.9 (8.4-10.2) MG/DL Total Bilirubin 0.80 (0.20-1.30) MG/DL Icterus Index < 2 (0-7) AST 41 (17-59) U/L ALT 77 H (21-72) U/L Alkaline Phosphatase 63 (38-126) U/L Total Protein 7.0 (6.3-8.2) G/DL Albumin 4.2 (3.5-5.0) G/DL Globulin 2.8 (2.4-3.6) G/DL Albumin/Globulin Ratio 1.5 (1.1-2.2) RATIO Specimen Hemolysis < 15 (0-25) Ur Collection Type Urine, clean catch Urine Color Red (YELLOW) Urine Clarity Sl cloudy Urine pH 6.5 (5.0-8.0) Ur Specific [place] >=1.030 H (1.015-1.025) Urine Protein 3+ A (NEGATIVE) Urine Glucose (UA) Negative (NEGATIVE) Urine Ketones Trace A (NEGATIVE) Urine Occult Blood 3+ A (NEGATIVE) Urine Nitrate Negative (NEGATIVE) Urine Bilirubin 1+ A (NEGATIVE) Urine Urobilinogen 0.2 (NORMAL) EU/DL Ur Leukocyte Esterase Trace A (NEGATIVE) Urine RBC Tntc (0-3) /HPF Urine WBC 1-3 (0-5) /HPF Urine Bacteria Trace H (NEGATIVE) Ur Culture Indicated? Cult not indicated Disposition Clinical Impression: Renal calculi, Acute retention of urine Disposition: 02 To [facility] Acute Care Condition: Stable for Transport Prescriptions: No Action Tamsulosin HCl [Flomax] 0.4 mg PO DAILY #30 cap.er.24h Tramadol [Ultram] 1 - 2 tab PO QID PRN #30 tab PRN Reason: Pain Multivitamin [One-A-Day Essential] 1 each PO DAILY Metoclopramide HCl [Reglan] 10 mg PO QID #30 tab Hydrocodone/APAP 5/325 [[place] 5/325] 1 tab PO QID PRN #30 tab PRN Reason: Pain Referrals: Ayse Bustamante APRN [Family Provider] - Time of Disposition: 22:14 - Seen By: midlevel
[2017-08-08] MEDS: NS 1,000 ML IV SCH ×2 (20:57→23:28)
--- NOTE | 2017-08-08 22:27 | History & Physical Report ---
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 He was supposed to be admitted on Wednesday to Dr Frazier's service in order to get lithotripsy. Mr. Grajeda's pain became so severe this afternoon this evening he called who recommended he come to the emergency room for evaluation. Did try [place] home without relief. He admits to whit hematuria night, he denies any fever or chills he states his current pain is about 5/10. Review of Systems Comprehensive ROS: completed and no additional positive findings except those as stated PFSH Patient Stated Medical History Other Cardiology Yes: SMALLER VENTRICLES PER PT Hx Kidney Stones Yes: CHRONIC Other Yes: STENT RIGHT URETERAL Surgical History: Appendectomy. Multi-lithotripsy - Social History Smoking status: Never smoker Substance use type: does not use Alcohol intake frequency: 0-2 drinks per day Household members: spouse Current occupational status: employed Current occupation: truck sales representative Current occupational exposures/hazards: No Does patient use chewing tobacco?: No Medications Home Medications Medication Instructions Recorded Confirmed Type Multivitamin [One-A-Day Essential] 1 each PO DAILY 08/06/17 08/08/17 History Allergies Allergy/AdvReac Type Severity Reaction Status Date / Time codeine Allergy Severe THROAT Verified 08/08/17 20:23 SWELLING Penicillins Allergy Intermediate HIVES Verified 08/08/17 20:23 ampicillin Allergy Unknown HIVES Verified 08/08/17 20:23 iodine Allergy Unknown Verified 08/08/17 20:23 oxycodone AdvReac Mild Nausea and Verified 08/08/17 20:23 Vomiting Exam Vital Signs: Temperature 98.6 F 08/08/17 20:20 Pulse Rate 89 08/08/17 20:20 Respiratory Rate 16 08/08/17 20:20 Blood Pressure 121/68 08/08/17 20:20 Pulse Oximetry 95 08/08/17 20:20 Height/Weight/BMI: Height 1.91 m Weight 94.4 kg - Constitutional Present: no acute distress - Routine HEENT Exam Head: Present: normocephalic Eye: Present: EOMI, PERRL - Routine Neck Exam Present: supple - Routine Chest/Breast/Axilla Exam Chest wall: Absent: tenderness - Routine Respiratory Exam Present: CTA bilaterally. Absent: accessory muscle use, rhonchi, wheezes - Routine Cardiovascular Exam Present: RRR - Routine Abdominal Exam Present: soft, normoactive bowel sounds, tenderness - Routine Extremities Exam Present: no edema. Absent: cyanosis, clubbing - Routine Back/Spine/Pelvis Exam Back/Spine: Present: full ROM, CVA tenderness - Routine Neurological Exam Present: alert, oriented X3, CN II-XII intact Results - Labs CBC & Chem 7: 08/08/17 20:54 08/08/17 20:54 Assessment and Plan (1) Elevated serum creatinine Current visit: Yes Status: Acute (2) Renal calculi Current visit: Yes Status: Acute 08/09/17 02:21 pain meds IV fluids Dr Frazier to see in am re: ESWL Hospital Course Summary Disclaimer: The visit summary below is not to be considered part of the above Progress Note.
[2017-08-08] MEDS ORDERED: KETOROLAC 15 MG/ML INJECTION IVP PRN (23:08)
[2017-08-08 23:12] VITALS: BMI 26.4
[2017-08-08] MEDS ORDERED: NS 1,000 ML IV ONE (23:28)
[2017-08-08] MEDS: SALINE FLUSH 10ml SYRINGE IV PRN (23:28)
[2017-08-09] MEDS: HYDROMORPHONE 2 MG/ML INJECTION IVP PRN ×7 (01:41→23:47)
[2017-08-09] MEDS: NS 1,000 ML IV SCH ×6 (06:12→22:36)
[2017-08-09] MEDS ORDERED: LIDOCAINE 2% JELLY (Urojet) 20ml MM ONE ×2 (13:46→14:54)
[2017-08-09] MEDS ORDERED: PROPOFOL 20 ML ONE (13:50)
[2017-08-09] MEDS ORDERED: LIDOCAINE 2% JELLY Tube 30ml ONE (13:51)
[2017-08-09] MEDS ORDERED: FentaNYL 100 MCG/2 ML INJECTION ONE (13:57)
[2017-08-09] MEDS ORDERED: SALINE FLUSH 10ml SYRINGE ONE (14:08)
[2017-08-09] MEDS ORDERED: EPHEDRINE 50mg/ml INJECTION ONE (14:08)
[2017-08-09] MEDS ORDERED: ONDANSETRON 4 MG/2 ML INJECTION ONE (14:13)
[2017-08-09] MEDS ORDERED: CEFAZOLIN 1 G INJECTION IVP ONE (14:29)
--- NOTE | 2017-08-09 14:40 | Anesthesia Preoperative Report ---
Anesthesia Preoperative Record - Date and Time Date: 08/09/17 Preoperative Diagnosis: Severe pain nephrolithiasis Proposed Procedure: cysto, ESWL, stent removal, possible exchange NPO Since Date: 08/08/17 NPO Since Time: 23:00 Allergies/Adverse Reactions: Allergies Allergy/AdvReac Type Severity Reaction Status Date / Time codeine Allergy Severe THROAT Verified 08/08/17 20:23 SWELLING Penicillins Allergy Intermediate HIVES Verified 08/08/17 20:23 ampicillin Allergy Unknown HIVES Verified 08/08/17 20:23 iodine Allergy Unknown Verified 08/08/17 20:23 oxycodone AdvReac Mild Nausea and Verified 08/08/17 20:23 Vomiting - Vital Signs Vital Signs: Temperature 98 F 08/09/17 12:56 Pulse Rate 62 08/09/17 12:56 Respiratory Rate 14 08/09/17 12:56 Blood Pressure 120/78 08/09/17 12:56 Pulse Oximetry 97 08/09/17 12:56 Height and Weight: Height 6 ft 3 in Weight 97.1 kg Body Mass Index 26.4 - Medications Inpatient Medications: Current Medications Hydromorphone HCl (Dilaudid) 0.5 mg IVP Q3H PRN PRN Reason: Pain Last Admin: 08/09/17 08:12 Dose: 0.5 mg Sodium Chloride (Normal Saline) 1,000 mls @ 150 mls/hr IV .Q6H40M ANANT Last Admin: 08/09/17 13:19 Dose: 75 mls/hr Ketorolac Tromethamine (Toradol Inj) 15 mg IVP Q6H PRN PRN Reason: Pain Ondansetron HCl (Zofran) 4 mg IVP Q6H PRN PRN Reason: Nausea &/or vomiting Sodium Chloride (Iv Flush) 10 - 30 ml IV PRN PRN PRN Reason: IV flush Last Admin: 08/08/17 23:28 Dose: 10 ml Home Medications: Home Medications Medication Instructions Recorded Confirmed Type Multivitamin [One-A-Day Essential] 1 each PO DAILY 08/06/17 08/08/17 History - Medical History Respiratory: DENIES: Asthma, Pulmonary Edema Cardiovascular: Reports: Other (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, asymptomatic) DENIES: Hypertension Gastrointestional: Reports: Gastroesophageal Reflux Disease (rare, food dependent) Other History: DENIES: Anesthesia Reactions - Surgical History HEENT Surgeries: Reports: Other GI Surgery/Treatments: Reports: Appendectomy Musculoskeletal Surgery/Tx: Reports: Other (LUMBAR SURGERY) Anesthesia Reactions: None Hx Family Anesthesia Reaction: No History of Motion Sickness: No - Social History Smoking Status: Never smoker Hx Chewing Tobacco Use: No Substance Use Type: does not use Alcohol Intake Frequency: 0-2 drinks per day - Pertinent Findings Laboratory: CBC and BMP 08/09/17 05:00 08/09/17 05:00 BMP 08/09/17 05:00 Sodium 144 Potassium 3.7 Chloride 108 H Carbon Dioxide 30 BUN 15.0 Creatinine 1.3 Glucose 84 Calcium 9.0 D EKG Rhythm: Normal Sinus Rhythm - Physical Exam Respiratory Exam: Present: lungs clear, bilateral breath sounds equal Cardiovascular Exam: Present: regular rate and rhythm - Airway Assessment Mallampati Score: II TMD: 3 Fingerbreadths Teeth: poor dentation (missing, broken teeth) Overall Assessment: no airway concerns - ASA ASA Score: 2 - Plan Anesthesia: General Inhalation Gases - Discussion Discussion: Discussed risks/options/alternatives of anesthesia and questions answered. Patient consents. Nursing pain assessment noted. Present for Discussion: spouse Attestation Statement: Prior to the delivery of any anesthetic medication, I examined the patient, developed the plan, obtained the patient's consent and discussed the risk and benefits of the procedure with the patient/guardian. - Additional Information Seen by Anesthesia: Yes
--- NOTE | 2017-08-09 15:23 | Discharge Instructions ---
Discharge Plan - Med Rec/Dispo Prescriptions: No Action Tamsulosin HCl [Flomax] 0.4 mg PO DAILY #30 cap.er.24h Tramadol [Ultram] 1 - 2 tab PO QID PRN #30 tab PRN Reason: Pain Multivitamin [One-A-Day Essential] 1 each PO DAILY Metoclopramide HCl [Reglan] 10 mg PO QID #30 tab Hydrocodone/APAP 5/325 [[place] 5/325] 1 tab PO QID PRN #30 tab PRN Reason: Pain
--- NOTE | 2017-08-09 15:33 | Discharge Instructions ---
Discharge Plan - Med Rec/Dispo Additional Instructions: f/u in urology clinic next wednesday for stent removal Prescriptions: New Sulfamethoxazole/Trimethoprim [Bactrim 400-80 mg Tablet] 1 each PO BID #10 tab Continue Tamsulosin HCl [Flomax] 0.4 mg PO DAILY #30 cap.er.24h Tramadol [Ultram] 1 - 2 tab PO QID PRN #30 tab PRN Reason: Pain Multivitamin [One-A-Day Essential] 1 each PO DAILY Metoclopramide HCl [Reglan] 10 mg PO QID #30 tab Hydrocodone/APAP 5/325 [[place] 5/325] 1 tab PO QID PRN #30 tab PRN Reason: Pain - Disposition 01 Discharged Home, Self-Care
--- NOTE | 2017-08-09 15:53 | Anesthesia Postoperative Note ---
- Date and Time Date: 08/09/17 - Status Patient Participated in Evaluation: Patient Participated in Person Vital Signs: Temperature 98 F 08/09/17 12:56 Pulse Rate 62 08/09/17 12:56 Respiratory Rate 14 08/09/17 12:56 Blood Pressure 120/78 08/09/17 12:56 Pulse Oximetry 97 08/09/17 12:56 Respiratory Function: Airway Patent, Regular Respirations Cardiovascular Function: Regular Pulse Mental Status: Alert and Oriented Pain Intensity: 7 Hydration: IV Infusing Complications During Recover: None Apparent - Follow-Up Instructions Instructions: Per Surgeon
[2017-08-09] MEDS ORDERED: KETOROLAC 30 MG/ML INJECTION IVP PRN (16:04)
[2017-08-09] MEDS ORDERED: ACETAMINOPHEN IV 1,000 MG/100 ML VIAL IV ONE (16:05)
[2017-08-09] MEDS ORDERED: HYDROCODONE/APAP 10 MG/325 MG TABLET PO PRN (17:50)
[2017-08-09] MEDS: ONDANSETRON 4 MG/2 ML INJECTION IVP PRN (20:18)
[2017-08-10] MEDS: HYDROMORPHONE 2 MG/ML INJECTION IVP PRN ×4 (04:11→21:33)
[2017-08-10] MEDS: SALINE FLUSH 10ml SYRINGE IV PRN ×2 (04:12→15:16)
[2017-08-10] MEDS: NS 1,000 ML IV SCH ×2 (06:15→20:15)
[2017-08-10] MEDS: ONDANSETRON 4 MG/2 ML INJECTION IVP PRN (07:36)
--- NOTE | 2017-08-10 08:34 | Operative Note ---
DATE OF PROCEDURE 08/09/2017 PREOPERATIVE DIAGNOSIS Right kidney stones. POSTOPERATIVE DIAGNOSIS Right kidney stones. PROCEDURE PERFORMED 1. Cystoscopy, removal of right stent. 2. Right retrograde pyelogram. 3. Right ESWL. 4. Right ureteroscopy with laser lithotripsy. 5. Stone basketing. 6. Right stent placement. PRIMARY SURGEON Sanket Frazier MD COMPLICATIONS None. DRAINS 6 x 26 double-J stent on the right side. SPECIMEN Removed stones for analysis. INDICATION FOR THE PROCEDURE This is a 51-year-old male who underwent stent placement in [place] about a month ago for a right stone. His followup imaging at [facility] revealed a stone in the right lower pole of his kidney which was about 1 cm big and another 5 mm stone in the right upper pole. His stent was in place. After discussion of his options, he elected to proceed to the OR for ESWL and ureteroscopy to clear the stones. RADIOLOGIC FINDINGS Right retrograde pyelogram showed a filling defect in the lower pole of the right kidney corresponding to the stone. DESCRIPTION OF PROCEDURE The patient was identified in the preoperative holding area. The procedure was explained to him and he agreed to proceed. He was taken back to the operating room where he was placed supine on the operating table. General anesthesia was induced. He was then placed in the dorsal lithotomy position. His genitalia were prepped and draped in the usual fashion. At this time a formal time-out was done and all the persons in the room were in agreement. I started the procedure by introducing a rigid cystoscope in the bladder. Upon entry to the bladder, I identified the right stent. This was grabbed with a flexible grasper and removed from the bladder. I then reintroduced my cystocope into the bladder. A 5 Kyrgyz ureteral catheter was used to intubate the right UO. We then used fluoroscopy from the ESWL machine to try to identify the stone. However, this was difficult to visualize with fluoroscopy. I decided to shoot a right retrograde pyelogram to visualize the stone better in the lower pole. Using the 5 Kyrgyz, the 5 Kyrgyz ureteral catheter was advanced to the level of the right kidney. I then shot a right retrograde pyelogram that showed mild hydronephrosis with a filling defect in the right lower pole corresponding to the stone. Once the filling defect in the right lower pole was identified, the lithotripsy head was coupled to the patient. It was then focused on the stone at 0 and 30 degrees. We then began shocking the stone at a frequency of 60 starting at an energy of 3.5. The frequency was then slowly increased to 120 and the energy to 4. After about 1, 000 shocks the filling defect completely disappeared, so the ESWL was stopped. I then placed a Sensor wire through the 5 K[place]gyz ureteral catheter and curled it into the right kidney. Ureteral access sheath was placed over the wire and advanced to the proximal ureter. I then placed my flexible uteroscope through the access sheath and advanced ii to the right kidney. I inspected the lower pole of the right kidney and there was excellent fragmentation of the stone. There were only some minimal fragments left. Using a ZeroTip basket, I removed some fragments and sent them for analysis. The patient had some residual very small fragments that were very small even to fit in the basket. I then drove by ureteroscope to the upper pole of the right kidney. There, I identified the former ureteral stone. This was imbedded in the mucosa. Using a holmium laser fiber, the stone was fragmented into several dust-like particles. At this point there were no significant stone fragments left in the kidney. The wire was replaced and the ureteroscope was removed. I introduced my cystoscope into the bladder. A 6 x 26 double-J stent was placed over the wire and under fluoro guidance advanced to the level of the right kidney. The wire was then removed and observed a nice curl of the stent in the kidney and in the bladder. The bladder was emptied. The string from the stent was secured to the patient's penis using a Tegaderm. This concluded the procedure. The patient was awakened from anesthesia and taken back to PACU. DISPOSITION The patient will follow up with me next Wednesday for stent removal. JOSSY
[2017-08-10] MEDS ORDERED: HYDROCODONE/APAP 7.5 MG/325 MG TABLET PO PRN (08:54)
[2017-08-10] MEDS ORDERED: ONDANSETRON 4 MG/2 ML INJECTION IV ONE (10:57)
--- NOTE | 2017-08-10 11:01 | Progress Note ---
Subjective: Nauseated, having hematuria, still in pain. Objective Vital signs: Temperature 97.6 F 08/10/17 08:00 Pulse Rate 61 08/10/17 08:00 Respiratory Rate 12 08/10/17 08:00 Blood Pressure 111/72 08/10/17 08:00 Pulse Oximetry 95 08/10/17 08:00 Rhythm: Normal Sinus Rhythm - Constitutional Present: mild distress - Routine HEENT Exam Head: Present: normocephalic, atraumatic Eye: Present: EOMI, PERRL - Routine Respiratory Exam Present: CTA bilaterally - Routine Cardiovascular Exam Present: RRR, S1, S2 - Routine Abdominal Exam Present: normoactive bowel sounds, non distended, non tender - Routine Extremities Exam Absent: cyanosis, clubbing, edema - Routine Neurological Exam Present: alert, oriented X3, CN II-XII intact - Routine Psychiatric Exam Present: normal affect, good insight, good judgment Results - Labs CBC & Chem 7: 08/09/17 05:00 08/09/17 05:00 Assessment and Plan (1) Renal calculi Current visit: Yes Status: Acute 08/09/17 02:21 pain meds IV fluids Dr Frazier to see in am re: ESWL (2) Elevated serum creatinine Current visit: Yes Status: Acute Assessment and Plan: This is a 51 YO male who had an ureteral stent yesterday for stones, he continues to have hematuria and to be nauseated. Will continue IV anti - emetics and switch back to IV pain medications. - Time spent with patient 25 - 35 minutes Sepsis Assessment - Evaluation Sepsis screening result: No Definite Risk Hospital Course Summary Disclaimer: The visit summary below is not to be considered part of the above Progress Note.
--- NOTE | 2017-08-10 17:08 | XRay Report ---
Indication: diarrhea PROCEDURE: XR KUB: Encounter: Initial Comparison: August 06, 2017 Findings: Bowel gas pattern is nonobstructive and nonspecific. Right-sided double-J stent in place with possible interval replacement as the distal locking loop is now coiled. No significant stool burden identified. Bony structures are unchanged. Impression: Nonobstructive nonspecific bowel gas pattern. .
[2017-08-10] MEDS ORDERED: DIPHENOXYLATE /ATROPINE TABLET PO PRN (18:36)
[2017-08-10] MEDS ORDERED: TAMSULOSIN 0.4 MG CAPSULE PO SCH (21:00)
[2017-08-11] MEDS: HYDROCODONE/APAP 10 MG/325 MG TABLET PO PRN ×2 (03:45→15:00)
[2017-08-11] MEDS: HYDROMORPHONE 2 MG/ML INJECTION IVP PRN (04:55)
[2017-08-11 07:52] VITALS: RESP 16
[2017-08-11] MEDS: NS 1,000 ML IV SCH (07:54)
[2017-08-11] MEDS ORDERED: KETOROLAC 15 MG/ML INJECTION IVP ONE (11:00)
[2017-08-11 11:23] VITALS: TEMP 97.7; O2SAT 95
[2017-08-11] MEDS ORDERED: CYCLOBENZAPRINE 5 MG TABLET PO ONE (11:30)
--- NOTE | 2017-08-11 12:03 | Progress Note ---
Subjective: Pt states he wants to go home. Still has hematuria, still in pain - requiring still IV Dilaudid. States Flexeril will help him for this pain. Diarrhea is resolved since mid night. Objective Vital signs: Temperature 97.7 F 08/11/17 11:22 Pulse Rate 70 08/11/17 11:22 Respiratory Rate 16 08/11/17 11:22 Blood Pressure 103/64 08/11/17 11:22 Pulse Oximetry 95 08/11/17 11:22 Rhythm: Normal Sinus Rhythm Height/Weight/BMI: Weight 98 kg - Constitutional Present: no acute distress - Routine HEENT Exam Head: Present: normocephalic, atraumatic Eye: Present: EOMI, PERRL - Routine Respiratory Exam Present: CTA bilaterally - Routine Cardiovascular Exam Present: RRR, S1, S2 - Routine Abdominal Exam Present: soft, non distended, non tender - Routine Extremities Exam Absent: cyanosis, clubbing, edema - Routine Neurological Exam Present: alert, oriented X3, CN II-XII intact - Routine Psychiatric Exam Present: normal affect, cooperative, good insight, good judgment Results - Labs CBC & Chem 7: 08/11/17 04:37 08/11/17 04:37 Assessment and Plan (1) Renal calculi Current visit: Yes Status: Acute (2) Elevated serum creatinine Current visit: Yes Status: Acute Assessment and Plan: . SUMMARY - Mr Grajeda is a 52 YO male with H.O kidney stones who came with obstruction and had a stent placed 2 days ago. Yesterday he developed Nausea and diarrhea. He is a bit better 1) Ureterolithiasis - S/P Stent - creatinine stable. - Change pain medication to PO 2) Diarrhea - Screen negative for Norovirus and C diff. Plan 1) Observe on oral pain meds 2) D/C Anti-emetics. 3) Stop Anti-diarrheal If pt is stable and tolerating PO well today - Will D/C home later. - Time spent with patient 25 - 35 minutes Coordination of Care: >50% of visit spent providing counseling/coordination of care Sepsis Assessment - Evaluation Sepsis screening result: No Definite Risk Hospital Course Summary Disclaimer: The visit summary below is not to be considered part of the above Progress Note.
[2017-08-11 15:03] VITALS: BP 113/72; PULSE 80
[2017-08-11] MEDS ORDERED: MULTI TRACE ELEMENTS IV ONE (16:55)
[2017-08-11] MEDS ORDERED: NS IV ONE (16:55)
--- NOTE | 2017-08-11 16:59 | Discharge Instructions ---
Discharge Plan - Med Rec/Dispo [place] Instructions: [facility] [place], w or wo Ureteroscopy and Stone Tx Additional Instructions: f/u in urology clinic next wednesday for stent removal Prescriptions: New Ferrous Sulfate [Feosol] 324 mg PO WB 30 Days #30 tab Hydrocodone/APAP 10/325 [[place] 10/325] 1 tab PO Q4H PRN 5 Days #20 tab PRN Reason: Pain Continue Tamsulosin HCl [Flomax] 0.4 mg PO DAILY #30 cap.er.24h Tramadol [Ultram] 1 - 2 tab PO QID PRN #30 tab PRN Reason: Pain Multivitamin [One-A-Day Essential] 1 each PO DAILY Metoclopramide HCl [Reglan] 10 mg PO QID #30 tab Hydrocodone/APAP 5/325 [[place] 5/325] 1 tab PO QID PRN #30 tab PRN Reason: Pain - Disposition 01 Discharged Home, Self-Care
--- NOTE | 2017-08-11 17:00 | Discharge Summary ---
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 He was supposed to be admitted on Wednesday to Dr Frazier's service in order to get lithotripsy. Mr. Grajeda's pain became so severe this afternoon this evening he called who recommended he come to the emergency room for evaluation. Did try [place] home without relief. He admits to whit hematuria night, he denies any fever or chills he states his current pain is about 5/10. Objective Vital signs: Temperature 97.7 F 08/11/17 15:03 Pulse Rate 80 08/11/17 15:03 Respiratory Rate 16 08/11/17 15:03 Blood Pressure 113/72 08/11/17 15:03 Pulse Oximetry 95 08/11/17 15:03 Rhythm: Normal Sinus Rhythm Height/Weight/BMI: Weight 98 kg Comments: Refer to today's progress note for details in physical exam Hospital Course This is a general summary of the patient's hospital course. For more details refer to the complete medical record. Hospital course: SUMMARY - Mr Grajeda is a 52 YO male with H.O kidney stones who came with obstruction and had a stent placed 2 days ago. Yesterday he developed Nausea and diarrhea. He tested negative in a GI pannel including negative C Diff and negative Norovirus. FINAL DIAGNOSIS - 1) Ureterolithiasis - S/P Stent - creatinine stable. - D/C on [place] 10 PO daily x 5 days - Flomax - Iron + MVI due to hematuria. 2) Diarrhea, resolved. - Screen negative for Norovirus and C diff. Disposition - Home now, to check with Urologist (Dr Frazier) next wednesday Time spent with patient: 25 - 35 minutes DVT Prophylaxis: other GI Prophylaxis: other Discharge Plan - Med Rec/Dispo [place] Instructions: [facility] Cysto & Stent Placement, w or wo Ureteroscopy and Stone Tx Additional Instructions: f/u in urology clinic next wednesday for stent removal Prescriptions: New Ferrous Sulfate [Feosol] 324 mg PO WB 30 Days #30 tab Hydrocodone/APAP 10/325 [[place] 10/325] 1 tab PO Q4H PRN 5 Days #20 tab PRN Reason: Pain Continue Tamsulosin HCl [Flomax] 0.4 mg PO DAILY #30 cap.er.24h Tramadol [Ultram] 1 - 2 tab PO QID PRN #30 tab PRN Reason: Pain Multivitamin [One-A-Day Essential] 1 each PO DAILY Metoclopramide HCl [Reglan] 10 mg PO QID #30 tab Hydrocodone/APAP 5/325 [[place] 5/325] 1 tab PO QID PRN #30 tab PRN Reason: Pain - Disposition 01 Discharged Home, Self-Care
[2017-08-12] MEDS ORDERED: FERROUS SULFATE 324 MG TABLET PO SCH (08:00)
== END 2017-08-11 18:28 | disposition home or self-care (01) | DRG 661 ==
LOC: SRG 20:15 → ED 20:15 → SRG 23:00
PROVIDERS: ADMIT Pediatrics; ATTEND Internal Medicine